=== PATIENT | female | born 1960 | race Caucasian/White ===

== ENCOUNTER 2019-10-22 10:30 | Outpatient (RCR) | payer OTHER, SELFPAY ==
--- NOTE | 2019-09-28 15:33 | PTOPEVAL ---
PHYSICAL THERAPY EVALUATION AND PLAN OF CARE 09-28-2019 The PT evaluation was completed for the diagnosis of B LE lymphedema. The plan of treatment is scheduled for 3x/week for 5 weeks. Thank you for referring Ny Escalona to [facility] [place]. Please review, sign, date and return this plan of care CHERYL. I agree with and certify that the following plan of care is medically necessary. Referring Physician Date Attending Provider: Douglas Roger DO CC: Dr. Eric Bullard, per pt request *PT Outpatient Evaluation Start: 09/28/19 14:11 Document 09/28/19 14:05 TRAVON (Rec: 09/28/19 15:22 TRAVON [id number]) Therapy Assessment Status Assessment Status Assessment Status Evaluation Outpatient Past Medical History Past Medical History Source of Past Medical History Patient Neurological History Hx Neurological Disorders No Significant History Cardiovascular History Hx Hypertension Yes: meds control Respiratory History Hx Chronic Obstructive Pulmonary Disease Yes (COPD) Gastrointestinal History Hx Gastrointestinal Disorders No Significant History Genitourinary History Hx Genitourinary Disorders No Significant History Musculoskeletal History Hx Arthritis Yes: L hip arthritis; low back pain- on pain meds Hx Other Musculoskeletal Disorders Yes: obesity 283# per dr report Endocrine History Hx Hypothyroidism Yes: taking meds HEENT History Hx HEENT Disorders No Significant History Other History Hx Cancer Yes: lung cancer Hx Radiation Therapy Yes Hx Other Surgeries Yes: hernia repair, hysterectomy Evaluation Information Problem Diagnosis B LE swelling Onset few months ago Prior Level of Function Activity Level (Last 3 Months) Occupation not working outside of home; prev work in health care- caregiver Activity of Daily Living Ability Independent Indoor/Home Mobility Independent Community Mobility Independent Stairs Ability Independent Functional Cognition (Planning, Shopping Independent , Taking Medications) Cooking Yes Cleaning Yes Laundry Yes Shopping Yes Driving Yes Home Setting Home Type House Living Situation With Parent Comments Additional Prior Level of Function care for 93 yr old mom; have Comments class a lineman once/month for deep cleaning; Pain Assessment Timing of Pain Assessment Timing of Pain Asse
--- NOTE | 2019-10-22 11:34 | PTOPEVAL ---
PHYSICAL THERAPY DISCHARGE 10-22-2019 Ms. Escalona has received 12 PT sessions, from September 27 to today, for the diagnosis of B LE lymphedema. Compared to the initial evaluation, she has improved with: circumferential measurements decreased on R by 34.6 cm and L by 43.9 cm; her lymphedema is controlled with compression knee highs, 20-30 mmHg--Sigvaris Secure 550 size Large, average, long with closed toes; she is independent with garments, self lymph massage, monitor skin and lymphedema care. The goals were achieved and she will be discharged from PT at this time. deniz you for referring Ny Escalona to [facility] [place]. Please review, sign, date and return this discharge CHERYL. I agree with and certify that the following plan of care is medically necessary. Referring Physician Date Attending Provider: Douglas Roger, Document 10/22/19 10:38 TRAVON (Rec: 10/22/19 11:29 TRAVON [id number]) Subjective Information Ny reports:knee highs are Query Text:As Reported By Patient/ doing well, very satisfied Family with them, swelling of legs is staying down, am able to do the massage and use stockings to keep swelling down; agree to discharge from PT services. Pain Assessment Timing of Pain Assessment Timing of Pain Assessment Assessment Pain Scale Pain Scale Used Numeric (1 - 10) Self Report Pain Assessment Bilateral Leg(s) Reported Pain Level 2 Pain Description Tender on Palpation Other Pain Description tender to touch over R anterior mid tibia Pain Score Pain Score 2: Self Report Lymphedema Evaluation Skin Inspection Location Left Lower Extremity,Right Lower Extremity Skin Observations Dorsum Foot Swelling,Obesity Lymphedema Stage II Skin Inspection Comment minimal fading, brownish discoloration of skin over R and L anterior lower legs; edema over lateral malleoli B- pt stated always have had that fluid pocket over sides of ankle but back to her normal size of ankles ; B thighs without any firmness of tissue; B lower legs without any firmness of tissue . LE Circumferential Measurement Right LE Lymphedema Side Right Metatarsal Heads (cm) 24 Figure 8 of Ankle (cm) 56.5 8 cm From Bottom of Foot (cm) 29 12 cm From Bottom of Foot (cm) 27.2 16 cm From Bottom of Foot (cm) 30.2 20 cm From Bottom of Foot (cm)
== END 2019-10-22 13:40 | disposition home or self-care (01) ==
LOC: ANHPT 10:30
PROVIDERS: PCP Family Medicine; Visit Provider Family Medicine
DX: R60.9 Edema, unspecified (principal); I87.2 Venous insufficiency (chronic) (peripheral)
CPT/HCPCS: 29581; 97140; 97161

== ENCOUNTER 2020-11-14 08:49 | Outpatient (CLI) | payer OTHER, SELFPAY ==
[2020-11-14 18:22] LABS: Add Urine Microscopic? YES; Appearance Urine Turbid (Clear); Bacteria Urine Trace /hpf; Bilirubin Urine Negative (Negative); Blood Urine 3+ (Negative); Color Urine Yellow (Yellow); Glucose Urine UA Negative (Negative); Ketones Urine Negative (Negative); Leukocyte Esterase Ur 3+ LEU/UL (NEGATIVE); Nitrate Urine Negative (Negative); Protein Urine 2+ mg/dL (Negative); RBC Urine >75 /hpf (0-2); Urobilinogen Urine Negative mg/dL (<2.0); WBC Clumps Urine Present /HPF; WBC Urine >75 /hpf (0-3)
== END 2020-11-14 08:50 | disposition home or self-care (01) ==
LOC: ANHBWCLAB 08:51
PROVIDERS: PCP Family Medicine; Visit Provider Family Medicine
DX: R30.0 Dysuria (principal)
CPT/HCPCS: 81001; 87077; 87086; 87088; 87186